=== PATIENT | male | born 1975 | race African-American/Black ===

== ENCOUNTER 2019-02-16 07:20 | Day surgery (SDC) | payer BC, OTHER ==
[2019-02-16] MEDS ORDERED: NACL 0.9% 1000 ML 1,000 ML IV SCH (08:00)
[2019-02-16] MEDS ORDERED: XYLOCAINE 2% INFILTRATI ONE (08:26)
[2019-02-16] MEDS ORDERED: DIPRIVAN 10 MG/ML IV ONE ×2 (08:27)
--- NOTE | 2019-02-16 08:28 | Anesthesia Day of Surgery ---
Anesthesia Day of Surgery - Day of Surgery Patient Examined: Yes Patient H&P Reviewed: Yes Patient is NPO: Yes
--- NOTE | 2019-02-16 08:28 | Anesthesia Consultation ---
Anesthesia Consult and Med Hx Date of service: 02/16/19 - Airway Anesthetic Teeth Evaluation: Good ROM Head & Neck: Adequate Mental/Hyoid Distance: Adequate Mallampati Class: Class II Intubation Access Assessment: Probably Good - Pre-Operative Health Status ASA Pre-Surgery Classification: ASA2 Proposed Anesthetic Plan: MAC - Pulmonary Hx Smoking: Yes (former smoker) - Cardiovascular System Hx Hypertension: Yes Hx Coronary Artery Disease: No (high cholesterol) - Endocrine Hx Renal Disease: Yes (CKD) Hx End Stage Renal Disease: No
--- NOTE | 2019-02-16 08:50 | Post Operative Note ---
Date of procedure: 02/16/19 Pre-op diagnosis: Dyspepsia, Hematochezia Post-op diagnosis: other Findings: EGD: Erosive gastritis. Biopsied. Colonoscopy: internal hemorrhoids otherwise normal Procedure: EGD with biopsy Colonoscopy Anesthesia: MAC Surgeon: ARABELLA DURÁN Estimated blood loss: minimal Pathology: list (Jar A - gastric biopsies, rule out H pylori) Specimen disposition: to lab Condition: stable Disposition: same day
--- NOTE | 2019-02-16 08:53 | Operative Report ---
Operative Report Operative Report: Esophagogastroduodenoscopy Procedure Note with Biopsies Date of procedure: 02/16/2019 Endoscopist: Missael Vicente Pre-op diagnosis: Dyspesia Post-op diagnosis: Erosive gastritis Anesthesia: MAC Complications: No immediate complications Estimated blood loss: minimal Procedure: After consent was obtained, the patient was placed in the left lateral decubitus position. The olympus endoscope was inserted into the patient's mouth under direct vision, and advanced into the 2nd portion of the duodenum without difficulty. The patient tolerated the procedure well. The views of the mucosa were good. Patient's vital signs were monitored continuously throughout the procedure. Findings: The esophagus appeared normal. There were a few small superficial erosions in the antrum of the stomach. Mild erythematous mucosa in the antrum. Biopsies were obtained to evaluate for H pylori. Otherwise, the stomach appeared normal. The duodenum appeared normal. Impression: 1. Erosive gastritis in the antrum. Biopsies obtained to evaluate for H pylori. 2. Otherwise, normal upper endoscopy Recommendations: -follow up pathology -avoid nsaid medications -anti-acid medication daily
--- NOTE | 2019-02-16 08:55 | Operative Report ---
Operative Report Operative Report: Colonoscopy Procedure Note Date of procedure: 02/16/2019 Endoscopist: Missael Vicente Pre-op diagnosis: Hematochezia Post-op diagnosis: Internal hemorrhoids Anesthesia: MAC Complications: No immediate complications Estimated blood loss: None Procedure: After consent was obtained, the patient was placed in the left lateral decubitus position. The olympus colonoscope was inserted into the patient's rectum under direct vision, and advanced to the cecum without difficulty. The patient tolerated the procedure well. The views of the mucosa were good. The quality of prep was good. The patient's vital signs were monitored continuously throughout the procedure. Findings: Internal hemorrhoids were visualized on retro-flexion view. Otherwise, the colon appeared normal Impression: 1. Internal hemorrhoids, otherwise normal colonoscopy Recommendations: -hemorrhoidal cream/suppository prn -repeat colonoscopy in 5 years (for screening purposes due to family history of colon cancer) -follow up in GI clinic in 1 month
[2019-02-16 09:29] VITALS: BP 124/86
== END 2019-02-16 07:21 | disposition home or self-care (01) ==
LOC: GIO 07:20
PROVIDERS: ATTEND Internal Medicine Gastroenterology
DX: K29.50 Unspecified chronic gastritis without bleeding (principal); K64.8 Other hemorrhoids; K30 Functional dyspepsia; I12.9 Hypertensive chronic kidney disease with stage 1 through stage 4 chronic kidney disease, or unspecified chronic kidney disease; N18.9 Chronic kidney disease, unspecified; B96.81 Helicobacter pylori [H. pylori] as the cause of diseases classified elsewhere; I25.10 Atherosclerotic heart disease of native coronary artery without angina pectoris; K92.1 Melena; E78.00 Pure hypercholesterolemia, unspecified; Z79.899 Other long term (current) drug therapy; Z87.891 Personal history of nicotine dependence; Z80.0 Family history of malignant neoplasm of digestive organs; Z98.890 Other specified postprocedural states
CPT/HCPCS: 43239; 45378; 88305; 88342; J2704; J7030